=== PATIENT | male | born 1960 | race Caucasian/White ===

== ENCOUNTER → 2020-04-22 | Outpatient (CLI) | payer MEDICAID ==
[2020-04-22 13:26] LABS: ARTERIAL BLOOD BASE EXCESS 5.8 mmol/L; ARTERIAL BLOOD H2CO3 1.61 mmol/L (1.05-1.35); ARTERIAL BLOOD HCO3 32.2 mmol/L (20-24); ARTERIAL BLOOD PCO2 53.6 mmHg (35-45); ARTERIAL BLOOD PO2 82.9 mmHg (80-100); ARTERIAL BLOOD TOTAL CO2 33.9 mmol/L (23-27)
[2020-04-22 13:43] LABS: ARTERIAL BLOOD FIO2 2L
== END ==
LOC: OD 12:35
PROVIDERS: ATTEND Registered Nurse
DX: J96.12 Chronic respiratory failure with hypercapnia (principal)
CPT/HCPCS: 82803

== ENCOUNTER → 2020-07-23 | Outpatient (CLI) | payer MEDICAID ==
[2020-07-23 11:12] LABS: ARTERIAL BLOOD H2CO3 1.57 mmol/L (1.05-1.35); ARTERIAL BLOOD HCO3 31.2 mmol/L (20-24); ARTERIAL BLOOD PCO2 52.2 mmHg (35-45); ARTERIAL BLOOD PO2 58.8 mmHg (80-100); ARTERIAL BLOOD TOTAL CO2 32.8 mmol/L (23-27)
[2020-07-23 11:14] LABS: ARTERIAL BLOOD FIO2 3 L
== END ==
LOC: OD 10:36
PROVIDERS: ATTEND Internal Medicine Pulmonary Disease
DX: J96.12 Chronic respiratory failure with hypercapnia (principal)
CPT/HCPCS: 82803